=== PATIENT | female | born 1980 ===

== ENCOUNTER 2017-05-27 14:56 | Emergency (ER) | payer OTHER ==
[2017-05-27 15:01] VITALS: BMI 28.3
[2017-05-27 15:03] VITALS: BP 112/78; PULSE 67; RESP 17; TEMP 97.9; O2SAT 99
--- NOTE | 2017-05-27 15:52 | C.PDOC ---
History Of Present Illness 36 y/o female, non -smoker, presents to ED with one year of a dry cough. pt sts she was seen in ED here 1 yr ago and given prednisone for her cough of 3-4 weeks at that time (per old chart). pt then followed up with her pmd in summer 2016, had neg cxr. Pt sts cough persists, is dry, no sob. pt denies recent incarceration, homelessness, work in [place] [facility] or residential, no weight loss, no rash. no hemoptysis. no fever or chills. pt has some nasal congestion. pt requesting steroids. Time Seen by Provider: 05/27/17 15:18 Chief Complaint (Nursing): Cough, Cold, Congestion History Per: Patient History/Exam Limitations: no limitations Onset/Duration Of Symptoms: Persistent (one year) Current Symptoms Are (Timing): Still Present Severity: Mild Reports Recently: Seen In ED (year ago), Treated By A Physician (summer 2016) Recent travel outside of the [place]: No Additional History Per: Patient Past Medical History Reviewed: Historical Data, Nursing Documentation, Vital Signs Vital Signs: Last Vital Signs Temp 97.9 F 05/27/17 15:02 Pulse 67 05/27/17 15:02 Resp 17 05/27/17 15:02 BP 112/78 05/27/17 15:02 Pulse Ox 99 05/30/17 04:42 - Medical History PMH: Bronchitis, Hypercholesterolemia Surgical History: No Surg Hx Family History: States: Unknown Family Hx - Social History Hx Tobacco Use: No Hx Alcohol Use: No Hx Substance Use: No - Immunization History Hx Tetanus Toxoid Vaccination: No Hx Influenza Vaccination: No Hx Pneumococcal Vaccination: No Review Of Systems Constitutional: Negative for: Fever, Chills Cardiovascular: Negative for: Chest Pain, Palpitations, Light Headedness Respiratory: Positive for: Cough (dry). Negative for: Shortness of Breath, Hemoptysis, Pleuritic Pain, Sputum, Wheezing Gastrointestinal: Negative for: Nausea, Vomiting, Abdominal Pain Genitourinary: Negative for: Dysuria, Frequency, Hematuria, Vaginal Discharge, Vaginal Bleeding Skin: Negative for: Rash Neurological: Negative for: Weakness, Numbness Physical Exam - Physical Exam Appears: Non-toxic, No Acute Distress Skin: Normal Color, Warm, Dry Head: Atraumatic, Normacephalic Eye(s): bilateral: Normal Inspection, PERRL, EOMI Nose: No Discharge, No Deformity Oral Mucosa: Moist Neck: Normal ROM, Supple Chest: Symmetrical, No Tenderness Cardiovascular: Rhythm Regular, No Murmur Respiratory: Normal Breath Sounds, No Rales, No Rhonchi, No Wheezing Gastrointestinal/Abdominal: Soft, No Tenderness Extremity: Normal ROM, No Deformity, No Swelling Neurological/Psych: Oriented x3, Normal Speech, Normal Cognition Gait: Steady ED Course And Treatment O2 Sat by Pulse Oximetry: 99 (On RA) Pulse Ox Interpretation: Normal Medical Decision Making Medical Decision Making: discussed with pt that with no wheezing or sob, steroids not recommended. pt appears well, in no resp distress, with mild nasal congestion. Will start pt on trial of claritin with recommendation of outpatient follow up with pmd and pulmonology. I explained that there are many causes of a persistent cough, that a repeat chest xray would not rule them all out, and further outpatient evaluation by [facility] consultant is advised. Disposition Counseled Patient/Family Regarding: Diagnosis, Need For Followup - Disposition Referrals: Nandini Pike MD [Staff Provider] - Disposition: HOME/ ROUTINE Disposition Time: 15:55 Condition: STABLE Additional Instructions: Please take Claritin as prescribed; it should help with post nasal drip. Please follow up with Dr Pike- [facility] consultant, and with your PMD for further outpatient evaluation of your cough. Prescriptions: Loratadine [Claritin] 10 mg PO DAILY #30 tab Forms: [facility] ([place]), Work Excuse, General Discharge Instructions - Clinical Impression Clinical Impression: Cough in adult patient - PA / [employer] / Resident Statement MD/DO has reviewed & agrees with the documentation as recorded. - Scribe Statement The provider has reviewed the documentation as recorded by the Scribe Akshat Ceja All medical record entries made by the Scribe were at my direction and personally dictated by me. I have reviewed the chart and agree that the record accurately reflects my personal performance of the history, physical exam, medical decision making, and the department course for this patient. I have also personally directed, reviewed, and agree with the discharge instructions and disposition.
== END 2017-05-27 16:17 | disposition home or self-care (01) ==
LOC: C.ER 14:56
DX: R05 Cough (principal)